=== PATIENT | male | born 1945 | race Caucasian/White ===

== ENCOUNTER 2018-01-19 10:00 | Outpatient (RCR) | payer MEDICARE, BC | END 2018-01-20 07:39 | LOC: WSPT 10:00 | DX: M51.17 Intervertebral disc disorders with radiculopathy, lumbosacral region (principal); M99.73 Connective tissue and disc stenosis of intervertebral foramina of lumbar region | CPT/HCPCS: G8978-GP; G8979-GP; G8980-GP ==

== ENCOUNTER 2018-04-25 10:12 | Outpatient (RCR) | payer MEDICARE, BC | END 2018-04-27 10:31 | disposition home or self-care (01) | LOC: WSPT 10:12 | DX: Z01.818 Encounter for other preprocedural examination (principal) | CPT/HCPCS: G8978-GP; G8979-GP; G8980-GP ==

== ENCOUNTER 2018-07-11 11:00 | Outpatient (RCR) | payer MEDICARE, BC | END 2018-07-11 11:04 | disposition home or self-care (01) | LOC: WSPT 11:00 | DX: Z47.1 Aftercare following joint replacement surgery (principal); Z96.642 Presence of left artificial hip joint | CPT/HCPCS: G8978-GP; G8979-GP; G8980-GP ==

== ENCOUNTER → 2019-03-06 | Outpatient (CLI) | payer MEDICARE, BC | LOC: COL.RAD 02-12 08:15 | DX: Z01.818 Encounter for other preprocedural examination (principal); H90.3 Sensorineural hearing loss, bilateral | CPT/HCPCS: A9585 ==